=== PATIENT | male | born 1970 | race Caucasian/White ===

== ENCOUNTER 2020-02-22 09:55 | Outpatient (CLI) | payer OTHER, SELFPAY ==
--- NOTE | ~2020-02-22 | XR_ITS ---
EXAMINATION: XR lumbar spine 2-3V DATE: 02/22/2020 10:18 INDICATION: Lumbar radiculopathy. Chronic low back pain. TECHNIQUE: 3 views of lumbar spine were obtained. COMPARISON: Lumbar spine MRI 08/11/2018 FINDINGS: There is 5 degrees levocurvature of thoracolumbar spine. There is 3 mm retrolisthesis of L2 on L3 and L3 on L4. Vertebral body heights are normal. There is mildly decreased disc height from L2 -L3 through L5-S1. There are endplate osteophytes at all levels. There is multilevel facet joint oste oarthritis, severe on the left at L5-S1. IMPRESSION: 1. Stable mild lumbar spondylosis. Reviewed, dictated and finalized at location A.
== END 2020-02-22 09:56 | disposition home or self-care (01) ==
LOC: ANHIMG 10:00
PROVIDERS: Visit Provider Psychiatry & Neurology Neurology
DX: M47.26 Other spondylosis with radiculopathy, lumbar region (principal)
CPT/HCPCS: 72100

== ENCOUNTER 2020-10-30 10:17 | Emergency (ER) | payer OTHER, SELFPAY ==
[2020-10-30 10:57] VITALS: BP 144/92; PULSE 74; RESP 20; TEMP 36.7; O2SAT 95
--- NOTE | 2020-10-30 12:34 | ED.BACK ---
HPI - Back Pain/Injury General Chief Complaint: Back Pain/Injury Stated Complaint: back pain Time Seen by Provider: 10/30/20 12:22 Source: patient Mode of arrival: ambulatory Limitations: no limitations History of Present Illness HPI Narrative: Patient is a 50-year-old male with a history of chronic back pain and right-sided radiculopathy who presents for evaluation of prescription refill. Patient states that his neurologist who used to prescribe high doses of oxycodone to the patient has retired, and the patient has not been seen by pain management. Patient does have a follow-up appointment November 03 with pain management as a new patient. Patient states that he tried to see if Dr. Chávez would fill the prescription as he is trying to take some of Dr. Spears's previous patients, Dr. Chávez was requiring the patient to be seen I would not refill it over the phone. Patient states he has chronic right-sided radiculopathy/sciatica. He has gabapentin which he takes as prescribed, Dr. Chávez was going to refill that prescription. Patient denies any new injuries. No recent falls or trauma. Patient is able to ambulate. No difficulty with urination or bowel function. No focal weakness or numbness. Related Data Allergies Allergy/AdvReac Type Severity Reaction Status Date / Time ibuprofen Allergy Unknown unknown Verified 10/30/20 11:33 Review of Systems Review of Systems: Narrative: CONSTITUTIONAL: Denies fever CARDIOVASCULAR: Denies chest pain RESPIRATORY: Denies cough or dyspnea. GASTROINTESTINAL: Denies abdominal pain SKIN: Denies rash MUSCULOSKELETAL: Reports chronic back pain, reports right-sided sciatica NEUROLOGIC: Denies headache [facility] Past Medical History Medical History Arthritis Family History Family History Father Family history of diabetes mellitus in first degree relative Hypertension Heart problem Cerebrovascular accident Mother Asthma Social History Social History Smoking packs per day: 1.5 Smoking cigarettes per day: 30.0 Smoking status: Current every day smoker Alcohol intake: never Exam Narrative: Exam Narrative: GENERAL: Awake, alert, conversant HEAD: Normocephalic, atraumatic. EYES: PERRLA and EOMI. ENT: Nares clear, no rhinorrhea or epistaxis. Mucous membranes moist. NECK: Supple. CHEST: No respiratory distress, breathing even and non labored HEART: Regular rate, sinus rhythm ABDOMEN:Non distended, non tender EXTREMITIES: Normal range of motion. No edema. SKIN: Warm, dry, no rash. NEURO:No focal deficits. Alert and oriented x3. Patient ambulatory with a narrow base, steady gait. No foot drop. Intact distal sensation. Course Vital Signs Vital signs: Vital Signs Temperature 36.7 C 10/30/20 10:57 Pulse Rate 74 10/30/20 10:57 Respiratory Rate 20 10/30/20 10:57 Blood Pressure 144/92 H 10/30/20 10:57 Pulse Oximetry 95 10/30/20 10:57 Temperature 36.7 C 10/30/20 10:57 Pulse Rate 74 10/30/20 10:57 Respiratory Rate 20 10/30/20 10:57 Blood Pressure 144/92 H 10/30/20 10:57 Pulse Oximetry 95 10/30/20 10:57 MDM - Back Pain/Injury MDM Narrative Medical decision making narrative: Given History and Exam the patient appears to be at low risk for Spinal Cord Compression Syndrome, Vertebral Malignancy/Mets, acute Spinal Fracture, Vertebral Osteomyelitis, Epidural Abscess, Infected or Obstructing Kidney Stone. Their presentation appears most likely to be secondary to non-emergent musculoskeletal etiology vs non-emergent disc herniation. Pain is reproducible, and patient has no other high risk factors such as history of malignancy, weight loss, infectious symptoms. Really, patient will require pain management follow-up which he has. We can do a temporizing 3-day prescription but I told him I would not f
== END 2020-10-30 13:16 | disposition home or self-care (01) ==
PROVIDERS: Emergency Provider Emergency Medicine; PCP Family Medicine
DX: M54.16 Radiculopathy, lumbar region (principal); M54.41 Lumbago with sciatica, right side; M19.90 Unspecified osteoarthritis, unspecified site; F17.210 Nicotine dependence, cigarettes, uncomplicated
CPT/HCPCS: 99283

== ENCOUNTER → 2021-01-06 02:01 | Outpatient (CLI) | payer OTHER, SELFPAY ==
[2021-01-06 17:39] LABS: SARS-CoV-2 RNA PCR Negative
== END ==
PROVIDERS: PCP Family Medicine; Visit Provider Internal Medicine Gastroenterology
DX: Z01.812 Encounter for preprocedural laboratory examination (principal); Z20.822 Contact with and (suspected) exposure to COVID-19
CPT/HCPCS: C9803; U0003; U0005

== ENCOUNTER → 2021-02-21 00:12 | Outpatient (CLI) | payer OTHER, SELFPAY ==
[2021-02-21 18:04] LABS: SARS-CoV-2 RNA PCR Negative
== END ==
PROVIDERS: PCP Family Medicine; Visit Provider Internal Medicine Gastroenterology
DX: Z01.812 Encounter for preprocedural laboratory examination (principal); Z20.822 Contact with and (suspected) exposure to COVID-19
CPT/HCPCS: C9803; U0003; U0005

== ENCOUNTER 2021-02-24 02:06 | Day surgery (SDC) | payer OTHER, SELFPAY ==
[2020-11-20 14:12] VITALS: BMI 26.2
[2020-12-25 15:05] VITALS: BMI 26.2
[2021-02-12 12:18] VITALS: BMI 26.2
[2021-02-24 07:45] VITALS: BP 130/88; PULSE 60; RESP 18; TEMP 37.2; O2SAT 97
[2021-02-24] MEDS: LACTATED RINGERS 1,000 ML 150 ML IV CONT (07:49)
--- NOTE | 2021-02-24 09:00 | WPDANESEPPF ---
Anes - Initial Pre Proc Eval Procedure: Operation Date: 02/24/21 09:00 Proposed Procedures p Screening Colonoscopy - Luigi Gilliam MD Date/Time: 02/24/21 09:00 Surgeon: Luigi Gilliam MD Pre Op Diagnosis: neoplasm screening Patient Data Age: 50 Gender: M Height: 1.78 m Weight: 79.1 kg Last Vital Signs Temp 98.9 F 02/24/21 07:45 Pulse 60 02/24/21 07:45 Resp 18 02/24/21 07:45 BP 130/88 02/24/21 07:45 Pulse Ox 97 02/24/21 07:45 Allergies Allergy/AdvReac Type Severity Reaction Status Date / Time ibuprofen Allergy Unknown Swelling Verified 02/24/21 07:44 Home Medications Medication Instructions Recorded Confirmed Type oxycodone-acetaminophen 5 mg-325 1 tablet PO Q6H PRN #120 tablet 11/04/20 02/24/21 Rx mg tablet gabapentin 800 mg PO TID 02/24/21 02/24/21 History Patient hx anesthesia problems: none Family hx anesthesia problems: none Results Review: All pre-operative results and documents have been reviewed as part of the pre-operative evaluation. [facility] Past Medical History Medical History Arthritis Family History Family History Father Family history of diabetes mellitus in first degree relative Hypertension Heart problem Cerebrovascular accident Mother Asthma Social History Social History Smoking packs per day: 1 Smoking cigarettes per day: 20.0 Years smoked: 20 Smoking pack-years: 20.00 Smoking status: Current every day smoker Tobacco type: cigarettes Alcohol intake: former Substance use: never Substance use type: does not use Living arrangements: with family Additional living arrangements comments: Ashley, long time girlfriend Gender identity (if verbalized by the patient): Male Spiritual care concerns: No Anes - Eval Final PreProcedure Day of Procedure 02/24/21 09:00 Patient weight: normal Heart: regular rate and rhythm Lungs: clear to auscultation Airway: Mallampati scale class II Neurological: alert and oriented Last oral intake: >/= 8 hours ASA classification: II Emergent: no Anesthetic plan: proceed Anesthesia type and monitoring: general GIVS and standard monitoring Results Review: All pre-operative results and documents have been reviewed as part of the pre-operative evaluation. Informed Consent: The patient's anesthetic plan and its attendant risks and benefits were discussed with the patient/family/POA. Questions were solicited and answers provided to the satisfaction of the patient/family/POA.
--- NOTE | 2021-02-24 09:04 | PM.HPGS ---
History of Present Illness History of Present Illness Consent: Risks, benefits, and alternatives have been discussed and questions answered. Patient agrees to proceed with procedure. Chief complaint: neoplasm screening Narrative: Pradip Paredes IV is a 50 year old male with last colonoscopy 2011 because had rectal bleeding associated to nsaid's use, now denies any. Review of Systems Constitutional: Constitutional: Denies headache(s) and Denies weakness Eyes: Eyes: Denies blurry vision ENT: Reports Normal hearing present, Denies headache(s) and Denies neck pain Cardiovascular: Cardiovascular: Denies chest pain and Denies dyspnea Respiratory: Respiratory: Denies dyspnea Gastrointestinal: Gastrointestinal: Reports no additional gastrointestinal complaints Genitourinary: Genitourinary: Denies dysuria Musculoskeletal: Musculoskeletal: Denies neck pain Integumentary/Breasts: Skin/Breast: Denies dry skin Neurologic: Reports Normal hearing present, Denies headache(s) and Denies weakness Psychiatric: Psychiatric: Denies anxiety Endocrine: Endocrine: Denies change in body appearance Hematologic/Lymphatic: Hematologic/Lymphatic: Denies easy bleeding Allergic/Immunologic: Allergic/Immunologic: Denies urticaria PMF Past Medical History Medical History (Updated 02/24/21 @ 09:05 by Luigi Gilliam MD) Arthritis Colon cancer screening Family History Family History Father Family history of diabetes mellitus in first degree relative Hypertension Heart problem Cerebrovascular accident Mother Asthma Social History Social History Smoking packs per day: 1 Smoking cigarettes per day: 20.0 Years smoked: 20 Smoking pack-years: 20.00 Smoking status: Current every day smoker Tobacco type: cigarettes Alcohol intake: former Substance use: never Substance use type: does not use Living arrangements: with family Additional living arrangements comments: Ashley, long time girlfriend Gender identity (if verbalized by the patient): Male Spiritual care concerns: No Meds Home Medications and Allergies Home Medications Medication Instructions Recorded Confirmed Type oxycodone-acetaminophen 5 mg-325 1 tablet PO Q6H PRN #120 tablet 11/04/20 02/24/21 Rx mg tablet gabapentin 800 mg PO TID 02/24/21 02/24/21 History Allergies Allergy/AdvReac Type Severity Reaction Status Date / Time ibuprofen Allergy Unknown Swelling Verified 02/24/21 07:44 Vital Signs Vital Signs - 24 hr 02/24/21 07:45 Temperature 98.9 F Pulse Rate 60 Respiratory Rate 18 Blood Pressure 130/88 Pulse Oximetry 97 Exam Const: General: comfortable and no acute distress HENMT: General nose exam: Normal nares present Eyes: General: appearance normal, both eyes and all related structures Neck: Neck: no JVD Resp: Auscultation: clear to auscultation bilaterally Cardio: Rate: regular rate Rhythm: regular rhythm GI: Inspection: non-distended GI Palp: Yes Soft to palpation Skin: General skin exam: normal color Neuro: General: gait normal Speech: normal speech Extrem: General: normal to inspection Psych: Mental Status: mental status grossly normal Assessment and Plan Assessment and plan (1) Colon cancer screening: Code(s): Z12.11 - Encounter for screening for malignant neoplasm of colon Status: Acute Assessment and Plan: colonoscopy (2) Change in bowel habits: Code(s): R19.4 - Change in bowel habit Status: Acute Assessment and Plan: will do colonoscopy, lately smaller stools (3) Chronic back pain: Qualifiers: Back pain laterality: right Back pain location: low back pain Sciatica laterality: sciatica of right side Sciatica presence: with sciatica Qualified Code(s): M54.41 - Lumbago with sciatica, right si
[2021-02-24 09:26] VITALS: BP 135/69; PULSE 48; RESP 18; O2SAT 98
[2021-02-24 09:36] VITALS: BP 144/77; PULSE 47; RESP 19; O2SAT 98
[2021-02-24 09:46] VITALS: BP 136/77; PULSE 50; RESP 20; O2SAT 99
== END 2021-02-24 09:53 | disposition home or self-care (01) ==
PROVIDERS: PCP Family Medicine; Visit Provider Internal Medicine Gastroenterology
PROC: 0DJD8ZZ Inspection of Lower Intestinal Tract, Via Natural or Artificial Opening Endoscopic (ICD-10-PCS; CPT 45378; principal; 2021-02-24 09:00)
DX: Z12.11 Encounter for screening for malignant neoplasm of colon (principal); F17.210 Nicotine dependence, cigarettes, uncomplicated
CPT/HCPCS: 45378; J2704; J7120

== ENCOUNTER 2021-11-10 13:20 | Emergency (ER) | payer OTHER, SELFPAY ==
[2021-11-10 13:24] VITALS: BP 137/88; PULSE 90; RESP 16; TEMP 36.7; O2SAT 100
--- NOTE | 2021-11-10 14:31 | ED.BACK ---
HPI - Back Pain/Injury General Chief Complaint: Back Pain/Injury Stated Complaint: neck, low back pain-chronic Time Seen by Provider: 11/10/21 13:33 History of Present Illness HPI Narrative: 51-year-old male here for evaluation of acute on chronic back pain. Patient tells me he has followed with pain management since 2012 for this issue and has been on narcotic pain medication since then. He recently got an injection in his neck and his back for his chronic pain, but reports that this procedure did not go well and he was reluctant to return to the provider who performed these injections. He states that pain management would not refill his pain medications until he went and got his injections, so he has been out for the past 3 days. Patient has found a new pain management doctor, and he is set to see them next week. Presents today due to being out of his medication. Denies saddle anesthesia, incontinence or retention of bowel or bladder. Related Data Home Medications Medication Instructions Recorded Confirmed gabapentin 800 mg tablet 800 mg PO TID 02/24/21 07/15/21 Allergies Allergy/AdvReac Type Severity Reaction Status Date / Time ibuprofen Allergy Unknown Swelling Verified 11/10/21 13:52 Review of Systems Review of Systems: Gen.: Denies fevers or chills Eyes: Denies eye pain or visual change ENT: Denies congestion Respiratory: Denies shortness of breath or cough CV: Denies chest pain or palpitations GI: Denies abdominal pain nausea, emesis or diarrhea denies burning, urgency, frequency or hematuria Musculoskeletal: Reports chronic back pain. Neuro: Denies numbness, tingling, weakness or focal weakness Skin: Denies rash Except as documented, all other systems reviewed and negative [facility] Past Medical History Medical History Arthritis Colon cancer screening Family History Family History Father Family history of diabetes mellitus in first degree relative Hypertension Heart problem Cerebrovascular accident Mother Asthma Social History Social History Smoking packs per day: 1 Smoking cigarettes per day: 20.0 Years smoked: 20 Smoking pack-years: 20.00 Smoking status: Current every day smoker Tobacco type: cigarettes Alcohol intake: former Substance use: never Substance use type: does not use Additional living arrangements comments: Ashley, long time girlfriend Gender identity (if verbalized by the patient): Male Spiritual care concerns: No Exam Narrative: APPEARANCE: Well appearing, no pain in distress, well-nourished. Head: normocephalic and atraumatic. EYES: PERRLA/EOMI, conjunctivae clear NOSE: No nasal drainage EARS: External ear normal in appearance THROAT: Oropharynx is clear. Mucous membranes are moist. NECK: Supple. No adenopathy, no masses. RESPIRATORY: Airway patent, respirations nonlabored. Clear to auscultation bilaterally, no rales, rhonchi, wheezing. CARDIOVASCULAR: Regular rate and rhythm without murmurs, rubs, or gallops. ABDOMINAL: Normoactive bowel sounds. Soft, nontender, nondistended. No rebound tenderness or guarding. MUSCULOSKELETAL: No midline tenderness to C, T, or L-spine. Straight leg raise negative bilaterally. Extremities are warm and well-perfused. Moves all extremities well. No edema. NEURO: Normal speech. No focal neurologic deficits. SKIN: Skin is warm and dry. No rashes. PSYCHIATRIC: Normal affect/mood. Course Vital Signs Vital signs: Vital Signs Temperature 98.1 F 11/10/21 13:24 Pulse Rate 90 11/10/21 13:24 Respiratory Rate 16 11/10/21 13:24 Blood Pressure 137/88 11/10/21 13:24 Pulse Oximetry 100 11/10/21 13:24 Temperature 98.1 F 11/10/21 13:24 Pulse Rate 90 11/10/21 13:24 Respiratory Rate 16 11/10/21 13:24 Blood Pressure 137/88
[2021-11-10] MEDS: HYDROcodone/acetaminophen (*CRX) 5-325 MG TABLET 1 TAB PO (14:37)
== END 2021-11-10 14:52 | disposition home or self-care (01) ==
PROVIDERS: Emergency Provider Emergency Medicine; PCP Family Medicine
DX: M54.9 Dorsalgia, unspecified (principal); G89.29 Other chronic pain; M19.90 Unspecified osteoarthritis, unspecified site; F17.210 Nicotine dependence, cigarettes, uncomplicated
CPT/HCPCS: 99283; A9270

== ENCOUNTER 2023-12-12 09:03 | Emergency (ER) | payer OTHER, SELFPAY ==
--- NOTE | 2023-12-12 09:09 | ED.DENTAL ---
HPI - Dental/Oral General Chief complaint: Dental/Oral Stated complaint: tooth pain Time Seen by Provider: 12/12/23 09:12 Source: patient Mode of arrival: ambulatory History of Present Illness HPI Narrative: 53-year-old male presented for complaint of right upper dental pain intermittently for a few months, worsening since yesterday. States he could not sleep last night due to the pain. Has been applying orajel, dental putty, ice packs without relief. He takes oxycodone for chronic back pain but it does not help the pain. Pt was given amoxicillin by pcp one month ago. Endorses poor dentition throughout. MD Complaint: tooth pain Related Data Home Medications Medication Instructions Recorded Confirmed gabapentin 800 mg tablet 800 mg PO TID 02/24/21 12/12/23 albuterol sulfate 90 mcg/actuation inhalation 12/12/23 aerosol inhaler amlodipine 5 mg tablet 5 mg PO DAILY 12/12/23 12/12/23 budesonide-formoterol HFA 80 inhalation 12/12/23 mcg-4.5 mcg/actuation aerosol inhaler (Symbicort) diazepam 2 mg tablet mg 12/12/23 ergocalciferol (vitamin D2) 1,250 1,250 mcg PO WEEKLY 12/12/23 12/12/23 mcg (50,000 unit) capsule rosuvastatin 10 mg tablet mg 12/12/23 Allergies Allergy/AdvReac Type Severity Reaction Status Date / Time ibuprofen Allergy Unknown Swelling Verified 11/10/21 13:52 Review of Systems Review of Systems: CONSTITUTIONAL: Denies body aches, fever, chills ENT: Denies rhinorrhea, congestion, sore throat, or otalgia. Reports dental pain CARDIOVASCULAR: Denies chest pain, palpitations RESPIRATORY: Denies cough or dyspnea. SKIN: Denies rash, itching, or wounds. MUSCULOSKELETAL: Denies myalgia. NEUROLOGIC: Denies headache, numbness, tingling, or weakness. [facility] Past Medical History Medical History (Updated 12/12/23 @ 09:43 by Beba Ulloa APRN) Arthritis Colon cancer screening COPD (chronic obstructive pulmonary disease) HTN (hypertension) Family History Family History Father Family history of diabetes mellitus in first degree relative Hypertension Heart problem Cerebrovascular accident Mother Asthma Social History Social History Smoking packs per day: 1 Smoking cigarettes per day: 20.0 Years smoked: 20 Smoking pack-years: 20.00 Smoking status: Current every day smoker Tobacco type: cigarettes Alcohol intake: former Substance use: never Substance use type: does not use Living arrangements: with family Additional living arrangements comments: Ashley, long time girlfriend Gender identity (if verbalized by the patient): Male Spiritual care concerns: No Comments At time of signature, I have reviewed and agree with nursing past medical, surgical, social and family history unless otherwise noted. Please see nursing chart for further information. There is no relevant family history pertinent to the presenting complaint Exam Narrative: GENERAL: Appears in mild pain; no acute distress. HEAD: Normocephalic, atraumatic. EYES: EOMI. No redness or drainage. Conjunctivae normal. ENT: Dental pain location of #2&3; minimal gum swelling no apparent erythema, no active drainage. Mucous membranes pink and moist. TMs normal bilaterally. Throat normal. Uvula midline. no dysphagia, odynophagia, dysphonia, or dyspnea. Patient is without trismus or drooling and able to swallow secretions. NECK: Normal AROM. No lymphadenopathy. no induration below mandible, no neck pain. CHEST: No respiratory distress. Clear to auscultation. HEART: Regular rate and rhythm. No murmur appreciated. SKIN: Warm, dry, no rash. Normal skin turgor. NEURO: No focal deficits. Alert and oriented x3. Gait steady. Course Course Emergency Course: Patient is aware of diagnosis, understands and agrees to treatment plan. Anticipatory guidance given. Patient agrees to fol
[2023-12-12 09:17] VITALS: BP 130/90; PULSE 65; RESP 16; TEMP 37.2; O2SAT 96
== END 2023-12-12 09:40 | disposition home or self-care (01) ==
PROVIDERS: Emergency Provider Nurse Practitioner Family; PCP Family Medicine
DX: K02.9 Dental caries, unspecified (principal); F17.210 Nicotine dependence, cigarettes, uncomplicated; J44.9 Chronic obstructive pulmonary disease, unspecified; I10 Essential (primary) hypertension; M19.90 Unspecified osteoarthritis, unspecified site
CPT/HCPCS: 99213; G0463